=== PATIENT | female | born 1965 | race Caucasian/White ===

== ENCOUNTER 2024-01-24 05:22 | Day surgery (SDC) | payer OTHER ==
[~2024-01-24 05:22] MED LIST: ESTROGEL93 GM TD; NEURONTIN300 MG PO; PERCOCET 5/3251 TAB PO; POLY119PG PO; SIMVASTATIN5 MG PO; TOPROL XL50 M1 PO
[2024-01-24] MEDS ORDERED: TRAMADOL HCL50 MG PO (07:58)
[2024-01-24] MEDS ORDERED: MIRALAX17 GM PO (07:58)
[2024-01-24] MEDS ORDERED: TYLENOL ARTHRI650 MG PO (07:58)
[2024-01-24] MEDS ORDERED: KETO10TA2 PO (07:58)
[2024-01-24] MEDS ORDERED: CEFAZOLIN SODIUM 1,000 MG VIAL IV ONE (08:00)
[2024-01-24] MEDS ORDERED: BUPIVACAINE HCL/PF 0.25% 50 ML VIAL IJ ONE (08:00)
[2024-01-24] MEDS ORDERED: MORPHINE SULFATE 4 MG/ML VIAL IV ONE (10:15)
== END 2024-01-24 11:35 | disposition home or self-care (01) ==
LOC: CIR.AMB 05:22
PROVIDERS: ATTEND Surgery
DX: K80.10 Calculus of gallbladder with chronic cholecystitis without obstruction (principal); I10 Essential (primary) hypertension